=== PATIENT | male | born 2000 | race Caucasian/White ===

== ENCOUNTER 2018-05-06 06:25 | Emergency (ER) | payer OTHER ==
[2018-05-06] MEDS ORDERED: KETOROLAC 60 MG/2 ML VIAL (J1885) IM (07:45)
[2018-05-06] MEDS: NAPROXEN 250 MG TAB PO (07:47)
== END 2018-05-06 07:51 | disposition home or self-care (01) ==
LOC: M ED 06:25
DX: S39.012A Strain of muscle, fascia and tendon of lower back, initial encounter (principal); M51.36 Other intervertebral disc degeneration, lumbar region; X58.XXXA Exposure to other specified factors, initial encounter; Y92.9 Unspecified place or not applicable; Y93.89 Activity, other specified; Y99.9 Unspecified external cause status; Z88.0 Allergy status to penicillin
CPT/HCPCS: 96372

== ENCOUNTER 2018-08-24 20:28 | Emergency (ER) | payer OTHER ==
[~2018-08-24] VITALS: Ht 170.2 cm; Wt 91.7 kg
[~2018-08-24 20:28] MED LIST: CYCL10TA PO; NAPR-885 PO
[2018-08-24 20:29] VITALS: BP 137/87
[2018-08-24] MEDS ORDERED: diphenhydrAMINE INJ 50MG/ML VIAL (J1200) IV STA (20:53)
[2018-08-24] MEDS ORDERED: KETOROLAC 30 MG/ML VIAL (J1885) IV ONE (21:00)
[2018-08-24] MEDS ORDERED: METOCLOPRAMIDE INJ 10MG/2ML VIAL (J2765) IV ONE (21:00)
[2018-08-24] MEDS ORDERED: NS 1,000 ML IV ONE (21:00)
--- NOTE | 2018-08-24 21:26 | REPVR ---
EXAM: CT Head Without Contrast EXAM DATE/TIME: 08/24/2018 9:07 PM CLINICAL HISTORY: 18 years old, male; Pain; Headache; Additional info: [place] TECHNIQUE: Imaging protocol: Axial computed tomography images of the head/brain without contrast. Radiation optimization: All CT scans at this facility use at least one of these dose optimization techniques: automated exposure control; mA and/or kV adjustment per patient size (includes targeted exams where dose is matched to clinical indication); or iterative reconstruction. COMPARISON: No relevant prior studies available. FINDINGS: Brain: No CT evidence of acute intracranial hemorrhage or acute territorial infarction. No significant mass effect or midline shift. Basal cisterns patent. Ventricles: Normal in size and configuration. Bones/joints: No acute osseous abnormality. Sinuses: Grossly unremarkable. Mastoid air cells: Grossly unremarkable. Soft tissues: Grossly unremarkable. IMPRESSION: No CT evidence of acute intracranial pathology. Electronically signed by: Daniel Perez On 08/24/2018 21:25:54 PM
[2018-08-24] MEDS ORDERED: REGL10TA6 PO (22:18)
== END 2018-08-24 22:25 | disposition home or self-care (01) ==
LOC: M ED 20:28
DX: R51 Headache (principal); Z88.0 Allergy status to penicillin
CPT/HCPCS: 70450; 96361; 96374; 96375; 99283; J1200; J1885; J2765

== ENCOUNTER 2018-12-12 18:08 | Emergency (ER) | payer OTHER ==
[~2018-12-12] VITALS: Ht 170.2 cm; Wt 88.6 kg
[~2018-12-12 18:08] MED LIST changes: +REGL10TA6 PO
[2018-12-12 20:21] VITALS: BP 123/84
== END 2018-12-12 20:22 | disposition home or self-care (01) ==
LOC: M ED 18:08
DX: J02.9 Acute pharyngitis, unspecified (principal); Z88.0 Allergy status to penicillin